=== PATIENT | female | born 1950 | race Caucasian/White ===

== ENCOUNTER → 2023-06-20 | Outpatient (CLI) | payer MEDICARE, OTHER, SELFPAY ==
[2023-06-20 15:06] LABS: Vitamin D,25 Hydroxy 45.7 ng/mL
[2023-06-20 15:45] LABS: PTHIN 46.3 pg/mL (18.4-80.1)
[2023-06-26 13:09] LABS: Vitamin D 1,25-Dihydroxy 49.4 pg/mL (24.8-81.5)
== END | disposition home or self-care (01) ==
LOC: POLAB3 14:16
PROVIDERS: Visit Provider Internal Medicine Nephrology
DX: E83.52 Hypercalcemia (principal)
CPT/HCPCS: 36415; 82306; 82652; 83970

== ENCOUNTER → 2023-06-25 | Outpatient (CLI) | payer MEDICARE, OTHER, SELFPAY ==
--- NOTE | 2023-06-25 12:13 | US_ITS ---
STUDY: RENAL ULTRASOUND - COMPLETE REASON FOR EXAM: Female, 72 years old. KIDNEY DISEASE STAGE 3A TECHNIQUE: Ultrasound evaluation of the kidneys was performed with real-time and static gloria-scale imaging. COMPARISON: None. FINDINGS: RIGHT KIDNEY: Normal location of the right kidney, which is normal in size. The right kidney measures 9.4 cm x 4.2 cm x 4 cm. There is diffuse thinning of the renal cortex. The renal cortex measures 0.8 cm. There is no right renal mass or cyst. There are no right renal calculi. There is no right hydronephrosis. DISTAL RIGHT URETER: There is non-visualization of the distal right ureter. There is no demonstrated right ureterovesical junction calculus. There is no demonstrated right ureteral jet. LEFT KIDNEY: Normal location of the left kidney, which is normal in size. The left kidney measures 10.2 cm x 4.4 cm x 4.9 cm. There is diffuse thinning of the renal cortex. The renal cortex measures 0.7 cm. There is no left renal mass or cyst. There are no left renal calculi. There is no left hydronephrosis. DISTAL LEFT URETER: There is non-visualization of the distal left ureter. There is no demonstrated left ureterovesical junction calculus. There is no demonstrated left ureteral jet. BLADDER: The distended urinary bladder has a volume of 178 ml. There is a normal wall thickness of the distended urinary bladder. There is no demonstrated mass within the urinary bladder. There are no demonstrated bladder calculi. US/Kidney and Bladder IMPRESSION: Mild degree of bilateral renal cortical thinning. Electronically Signed: Danish Madrid MD at 12:45 EST ,
== END | disposition home or self-care (01) ==
LOC: US 12:10
PROVIDERS: PCP Family Medicine; Referring Provider Internal Medicine Nephrology; Visit Provider Internal Medicine Nephrology
DX: N18.31 Chronic kidney disease, stage 3a (principal)
CPT/HCPCS: 76770

== ENCOUNTER 2023-08-31 13:11 | Outpatient (CLI) | payer MEDICARE, OTHER, SELFPAY ==
[2023-08-31 14:01] LABS: Albumin, Serum 3.5 g/dL (3.2-5.0); BUN 17 mg/dL (7-18); BUN/Creat Ratio 14.8 RATIO (10-20); Calcium,Total 9.6 mg/dL (8.5-10.1); Chloride 106 mmol/L (98-107); Creatinine, Serum 1.15 mg/dL (0.55-1.02); EST Glomerular Filtration Rate 49 mL/min (>60); Est Glom Filt Rate - Afr Amer 60 mL/min (>60); Glucose 105 mg/dL (74-106); Phosphorus 3.4 mg/dL (2.5-4.9); Potassium 3.6 mmol/L (3.5-5.1); Sodium Level 139 mmol/L (136-145)
== END 2023-08-31 23:59 | disposition home or self-care (01) ==
PROVIDERS: PCP Family Medicine; Referring Provider Internal Medicine Nephrology; Visit Provider Internal Medicine Nephrology
DX: N18.31 Chronic kidney disease, stage 3a (principal)
CPT/HCPCS: 36415; 80069

== ENCOUNTER 2024-04-28 13:18 | Inpatient (IN) | payer MEDICARE, OTHER, SELFPAY ==
[2024-04-28] VITALS (10 sets, daily range): BP systolic 133–173; BP diastolic 67–94; PULSE 60–94; RESP 15–20; TEMP 36.2–36.3; O2SAT 94–98; BMI 41.6; BMI 41.1
--- NOTE | 2024-04-28 13:36 | EKG12_ITS ---
Test Reason : Blood Pressure : */* mmHG Vent. 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
--- NOTE | 2024-04-28 13:36 | CT_ITS ---
STUDY: CT BRAIN WITHOUT CONTRAST REASON FOR EXAM: Female, 73 years old. Neuro deficit, acute, stroke suspected RADIATION DOSAGE (If Supplied By Facility): CTDIvol = ( 44.99 ) mGy, DLP = ( 796.11 ) mGycm TECHNIQUE: Transaxial CT imaging of the brain was performed without administration of intravenous contrast material. Individualized dose optimization techniques were used for this CT. COMPARISON: No relevant priors. FINDINGS: Normal soft tissue structures. Normal calvarium. There is mild cerebral atrophy with widening of the extra-axial spaces and ventricular dilatation. Normal white matter tracts of the cerebral hemispheres. Normal basal ganglia and thalami. Normal brainstem. Normal cerebellum. There is no intracranial hemorrhage. There are no findings of an acute ischemic infarction. Normal visualized paranasal sinuses. CT/Brain/Head without Contrast IMPRESSION: Chronic involutional changes of the brain. Electronically Signed: Danish Madrid MD at 14:06 EST ,
[2024-04-28] MEDS: Ondansetron 4 MG/2 ML Vial IV ×2 (13:51→17:46)
--- NOTE | 2024-04-28 13:55 | RAD_ITS ---
STUDY: X-RAY CHEST REASON FOR EXAM: Female, 73 years old. Neuro deficit, acute, stroke suspected -- Central gaze nystagmus, ataxia, TECHNIQUE: Single AP portable view of the chest. COMPARISON: None. FINDINGS: EKG electrodes are seen. Hyperinflation. The lungs are clear. There is no demonstrated pleural abnormality. Normal size heart. Normal mediastinum and roderick. Normal visualized pulmonary arteries. There is atherosclerotic tortuosity of the aortic arch and descending thoracic aorta. There are degenerative changes of the visualized thoracic spine. Normal visualized ribs, clavicles, and shoulders. There is no demonstrated abnormality of the visualized soft tissue structures of the upper abdomen. RAD/Chest 1 View IMPRESSION: Hyperinflation. The lungs are clear. Electronically Signed: Danish Madrid MD at 14:07 EST ,
[2024-04-28 13:58] LABS: Absolute Lymphocyte Count 4.01 X10^3/uL (0.83-4.51); Absolute Neutrophil Count 4.3 X10^3/uL (2.0-7.7); Basophil# 0.05 X10^3/uL; Basophil% 0.5 % (0-1); Eosinophil# 0.16 X10^3/uL; Eosinophils% 1.7 % (0-5); Hematocrit 41.4 % (37-47); Hemoglobin 13.9 g/dL (12.0-15.0); Lymphocyte # 4.01 X10^3/ul (0.83-4.51); Lymphocyte % 42.8 % (19-41); Mean Corp Hgb Conc 33.6 g/dL (32-36); Mean Corpuscular Hgb 30.6 pg (27.0-32.0); Mean Corpuscular Volume 91.2 fL (81-99); Mean Platelet Vol. 10.3 fl (6.2-12.0); Monocyte# 0.82 X10^3/uL; Monocyte% 8.8 % (0-10); NRBC Flagged by Analyzer 0 % (0-5); Platelet Count 275 K/mm3 (150-450); RBC Distribution Width SD 43.3 fl (35.1-43.9); Red Blood Count 4.54 M/mm3 (4.2-5.4); White Blood Count 9.4 K/mm3 (4.4-11.0)
--- NOTE | 2024-04-28 13:58 | ED.VIS.STROK ---
HPI History of Present Illness Chief Complaint: Dizziness Detail of Chief Complaint: Dizziness and problems with balance since April 18 Informant: patient Onset/Context/Timing Onset: Days Context: Sudden Onset Timing: Intermittent (Intermittent initially now continuous.) Quality and Location: Positive for Difficulty with Ambulation Onset: Approximately 9 days ago Worsened by: Nothing specific Relieved by: Nothing Associated Symptoms Associated Symptoms: Negative for Headache, Nausea, Vomiting or Chest Pain Narrative Narrative: Patient is a 73-year-old woman. She presents with dizziness which she describes bribes as something is not right and she is unsteady when she walks. It is gotten worse and has awakened her from sleep. She denies double vision, blurred vision or loss of vision. She denies trouble with speech or swallowing. She denies paresthesia, anesthesia or motor weakness upper lower extremity. Patient states she was hoping it would go away and reason she did not present to the emergency department earlier she denies headache. Prior similar symptoms: No Recent Illness/Hospitalization: No [facility] Medical History HTN (hypertension) Home Medications ?Medication ?Instructions ?Recorded ?Last Taken ?Type atenolol 100 mg tablet 100 mg PO DAILY 04/28/24 Unknown History atorvastatin 20 mg tablet 20 mg PO QHS 04/28/24 Unknown History biotin 1 mg tablet 1 mg PO DAILY 04/28/24 Unknown History cholecalciferol (vitamin D3) 25 25 mcg PO DAILY 04/28/24 Unknown History mcg (1,000 unit) capsule (Vitamin D3) levothyroxine 25 mcg capsule 25 mcg PO DAILY 04/28/24 Unknown History olmesartan 40 mg tablet 40 mg PO QHS 04/28/24 Unknown History omega-3 fatty acids 500 mg capsule 500 mg PO DAILY 04/28/24 Unknown History tolterodine 4 mg capsule,extended 4 mg PO DAILY 04/28/24 Unknown History release 24 hr triamterene 37.5 1 tab PO DAILY 04/28/24 Unknown History mg-hydrochlorothiazide 25 mg tablet Allergy/AdvReac Type Severity Reaction Status Date / Time adhesive Allergy Mild Swelling Verified 04/28/24 13:19 aspirin Allergy Mild Rash Verified 04/28/24 13:19 Social History (Updated 04/28/24 @ 14:[address] Ravi Arevalo MD) household members: none Smoking Status: Never smoker ROS ROS ED Constitutional Constitutional ED: Denies chills, fever(s) or subjective Eyes Eyes: Denies blurry vision, change in vision or diplopia ENT ENT ED: Denies ear pain, rhinorrhea or sore throat Cardiovascular Cardiovascular: Denies chest pain or palpitations Respiratory/Chest Respiratory/Chest: Denies cough, dyspnea or dyspnea on exertion Gastrointestinal Gastrointestinal: Reports nausea; Denies abdominal pain, diarrhea, melena or vomiting Genitourinary Genitourinary ED: Denies dysuria, hematuria or urinary frequency Musculoskeletal Musculoskeletal: Denies arthralgias, back pain, myalgias or neck pain Integumentary Denies rash Neurologic Neurologic: Reports other Details: Difficulty walking. ; Denies headache(s), paresthesias or weakness Psychiatric Psychiatric: Denies anxiety or depression Hematologic/Lymphatic Hematologic/Lymphatic: Denies easy bleeding or easy bruising EXAM Physical Exam Const Vital Signs: 04/28/24 13:19 04/28/24 13:29 04/28/24 13:31 Temperature 97.2 F L Temperature Source Temporal Pulse Rate 61 69 Respiratory Rate 15 16 Respiratory Effort Normal Non-Labored Respiratory Pattern Normal Blood Pressure 173/94 H 171/94 H Blood Pressure Mean 120 119 Pulse Ox 97 97 Oxygen Delivery Method Room Air Room Air 04/28/24 13:36 04/28/24 14:06 04/28/24 14:30 Temperature 97.2 F L Temperature Source Pulse Rate 69 60 63 Respiratory Rate 18 18 18 Respiratory Effort Respiratory Pattern Blood Pressure 171/94 H 165/81 H 165/81 H Blood Pressure Mean 119 109 109 Pulse Ox 98 94 94 Oxygen Delivery Method Room Air Room Air Positive well nourished and well developed Constitutional Narrative: BMI is greater than 40. There is no evidence of cerumen impaction. General Appearance ED: well developed HEENT Reports TM's clear and moist mucous membranes atraumatic Nose: other Other Details: Negative. Tympanic Membrane ED: Yes TM's clear bilateral Eyes PERRL and EOMs intact bilaterally Eyes Narrative: Patient has central gaze nystagmus. She has no visual field cut. General Eye ED: Negative for pale conjunctiva or scleral icterus Neck no lymphadenopathy and supple Chest Wall inspection of chest normal and palpation of chest normal Resp normal respiratory effort and clear to auscultation bilaterally Cardio no murmurs Rate: regular rate Rhythm: regular rhythm Heart Sounds: S1 normal and S2 normal GI normal to inspection, nondistended, normoactive bowel sounds, soft to palpation, non-tender, non-distended and no masses Back/Spine no CVA tenderness Extremity normal to inspection General Extremety ED: Negative for deformity or edema General Extremity: Negative for deformity or edema Neuro oriented x3, CN's II-XII intact bilaterally and no sensory deficits noted Neuro Narrative: Gait is ataxic. There is no dysmetria. Romberg with eyes open and close negative. The eye askew test and hints test were both negative. Nitin-Hallpike maneuver did not make her dizziness/vertigo worse. There is no worsening of her nystagmus either. Michael Coma Scale: document GCS findings Spontaneous Obeys Commands Oriented 15 Sensorium / Orientation: alert Speech: speech normal Gait (Neuro): Negative for normal gait Psych mental status grossly normal Skin no wounds General Skin Exam: Negative for jaundice Lesions: no lesions Rashes: no rashes NIHSS NIHSS Initial: 1a Level of Consciousness: 0 1b LOC Questions (Score 2 if aphasic/stupor): 0 1c LOC Commands (Only score 1st attempt): 0 2 Best Gaze (If aphasic, use reflexive mvmts.): 0 3 Visual: 0 4 Facial Palsy: 0 5 Motor Arm Right (UN = amputation/fusion): 0 5 Motor Arm Left: 0 6 Motor Leg Right: 0 6 Motor Leg Left: 0 7 Limb ataxia (Only + if out of proportion): 0 8 Sensory (Aphasia/stupor=0 or 1, coma=2): 0 9 Best Language: 0 10 Dysarthria (mute, coma=2, intubated=UN): 0 11 Extinction and Inattention (only scored if +): 0 Total Score: 0 MDM MDM MDM Narrative Medical decision making narrative: Patient's gait is ataxic. She is unable to do tandem gait. She falls to the right. With central gaze nystagmus symptoms persistent for 9 days 1 cannot attribute this to peripheral vertigo. Central vertigo need to be ruled out. Stroke order set was initiated with CT without contrast. CTA was not obtained since patient is elderly and she is not a candidate for thrombectomy and will await renal function results. Furthermore MRI would be a better study. Lab Data Attestation: I reviewed the patient's lab results. Lab results narrative: CBC is unremarkable. There is slight lymphocytosis. Electrolyte panel is normal. Glucose was slightly elevated 122 with a normal CO2 anion gap. Troponin is slightly elevated 89. Labs: Laboratory Results - last 24 hr 04/28/24 13:45 WBC 9.4 RBC 4.54 Hgb 13.9 Hct 41.4 MCV 91.2 MCH 30.6 MCHC 33.6 RDW Std Deviation 43.3 RDW Coeff of Brandon 13.0 Plt Count 275 MPV 10.3 Immature Gran % (Auto) 0.200 Neut % (Auto) 46.0 L Lymph % (Auto) 42.8 H [place] % (Auto) 8.8 Eos % (Auto) 1.7 Baso % (Auto) 0.5 Absolute Neuts (auto) 4.3 Absolute Lymphs (auto) 4.01 Nucleated RBC % 0 PT 12.8 INR 1.0 APTT 36.0 Sodium 137 Potassium 3.3 L Chloride 104 Carbon Dioxide 26.0 Anion Gap 7 BUN 16 Creatinine 0.94 Estim Creat Clear Calc 62.33 Est GFR (MDRD) Af Amer 75 Est GFR (MDRD) Non-Af 62 BUN/Creatinine Ratio 17.0 Glucose 122 H Calcium 10.0 Troponin I High Sens 89 H Radiography Chest X-Ray - ED: 1 View, Read by ED Physician (There is no abnormality of the lung parenchyma. Patient does have slight hyperaeration. There is no evidence of effusion or pneumothorax either.), Heart, Mediastinum, Bony Structures and No Acute Disease Diagnostic Testing: Clinical Impression(s) from Imaging Studies Brain CT 04/28/24 13:36 IMPRESSION: Chronic involutional changes of the brain. Electronically Signed: Danish Madrid MD at 14:06 EST , Chest X-Ray 04/28/24 13:55 IMPRESSION: Hyperinflation. The lungs are clear. Electronically Signed: Danish Madrid MD at 14:07 EST , CT report was reviewed. Agree there is no evidence of any acute abnormality. EKG Initial EKG: Attestation: I personally reviewed and interpreted this EKG as follows: Interpretation: Sinus Rhythm (Rate is 65 with a first-degree AV block. There is evidence of LVH with repolarization abnormality. [place] interval is 222 ms. Cures duration 94 ms. QT duration 448 ms. [place] is normal.) Management Discussion w/another healthcare provider: Hospitalist (Hospitalist made aware of history, physical findings and results. Patient will be full admit to PCU) Discharge Plan Dx/Rx/DC Orders Clinical Impression: Ataxia, Central positional nystagmus of both eyes, Nausea & vomiting, Elevated blood pressure reading with diagnosis of hypertension, Elevated troponin Disposition Disposition: Acute Care [facility]
[2024-04-28 14:06] LABS: Prothrombin Time (Protime)PT. 12.8 SECONDS (11.7-14.9)
[2024-04-28 14:18] LABS: Anion Gap 7 (5-15); BUN 16 mg/dL (7-18); Chloride 104 mmol/L (98-107); Creatinine, Serum 0.94 mg/dL (0.55-1.02); EST Glomerular Filtration Rate 62 mL/min (>60); Est Glom Filt Rate - Afr Amer 75 mL/min (>60); Estimated Creatinine Clearance 62.33 ml/min; Glucose 122 mg/dL (74-106); Potassium 3.3 mmol/L (3.5-5.1); Sodium Level 137 mmol/L (136-145); Troponin-I HS 89 pg/mL (3.0-54.0)
--- NOTE | 2024-04-28 15:19 | PCM.HP.STD ---
HPI - General General Date of Admission: 04/28/24 Date of Service: 04/28/24 Chief Complaint: Dizziness, unsteadiness HPI Narrative HORACIO RAMSEY, is a 73-year-old male history of hypertension and hypothyroidism presented [facility] ED 04/28/2024 with dizziness with the room spinning and unsteadiness when she walks that has gotten worse since the sixth and awakens her from sleep. She kept hoping it would go away however did not so she presented to the emergency department. In the ED CT head with no acute process however she had ataxic gait and symptoms consistent with central vertigo concerning for CVA. Given the symptoms have been present since April 18 CTA was not obtained as she would not be the candidate for any intervention. In the ED potassium 3.3 and troponin found to be elevated to 89 unclear significance. Hospitalist contacted for CVA rule out. Patient evaluated in the ED and reports that for about 9 days she has been having nights where she wakes up with the room spinning around her and she feels very unwell and during the day she has been feeling unsteady having difficulty focusing and stumbling, today symptoms were worse prompting her to come to the ED, also feeling little bit nauseous today. Has had brief episodes of vertigo like symptoms before but nothing prolonged and nothing like this. Denies any history cardiac complaints, also denies any chest pain or shortness of breath, no numbness, weakness, tingling, any other focal deficits. Does have problems with ringing in her ears for months but this has been unchanged and she denies any changes in her hearing. Patient does note that all of these symptoms that she has been having come and go and are not persistent throughout the day [facility] Medical History (Updated 04/28/24 @ 14:37 by Blanca Vernon) CPAP (continuous positive airway pressure) dependence HTN (hypertension) Hypothyroidism Kidney disease Non-smoker Osteoarthritis Sleep apnea Home Medications ?Medication ?Instructions ?Recorded ?Last Taken ?Type atenolol 100 mg tablet 100 mg PO DAILY 04/28/24 Unknown History atorvastatin 20 mg tablet 20 mg PO QHS 04/28/24 Unknown History biotin 1 mg tablet 1 mg PO DAILY 04/28/24 Unknown History cholecalciferol (vitamin D3) 25 25 mcg PO DAILY 04/28/24 Unknown History mcg (1,000 unit) capsule (Vitamin D3) levothyroxine 25 mcg capsule 25 mcg PO DAILY 04/28/24 Unknown History olmesartan 40 mg tablet 40 mg PO QHS 04/28/24 Unknown History omega-3 fatty acids 500 mg capsule 500 mg PO DAILY 04/28/24 Unknown History tolterodine 4 mg capsule,extended 4 mg PO DAILY 04/28/24 Unknown History release 24 hr triamterene 37.5 1 tab PO DAILY 04/28/24 Unknown History mg-hydrochlorothiazide 25 mg tablet Allergy/AdvReac Type Severity Reaction Status Date / Time adhesive Allergy Mild Swelling Verified 04/28/24 13:19 aspirin Allergy Mild Rash Verified 04/28/24 13:19 Surgical History (Updated 04/28/24 @ 14:37 by Blanca Vernon) History of appendectomy History of cholecystectomy Social History (Updated 04/28/24 @ 14:[address] Ravi Arevalo MD) household members: none Smoking Status: Never smoker ROS ROS Narrative General: Denies fever/chills HENT: Denies headache, denies stuffy nose, denies sore throat, some chronic ringing in ears EYES: Denies changes in vision Resp: Denies cough, denies shortness of breath Cardiac: Denies chest pain GI: Denies abdominal pain, denies changes in bowel, has a little bit of nausea : Denies changes in urination Extremity: Denies swelling MSK: Denies weakness Neuro: Denies any numbness/tingling, intermittently feeling unsteady and having difficulty focusing Heme: Denies any bleeding or bruising Skin: Denies rashes Psychiatric: No complaints voiced Vital Signs Vital Signs Vital Signs: 04/28/24 13:19 04/28/24 13:29 04/28/24 13:31 Temperature 97.2 F L Temperature Source Temporal Pulse Rate 61 69 Respiratory Rate 15 16 Respiratory Effort Normal Non-Labored Respiratory Pattern Normal Blood Pressure 173/94 H 171/94 H Blood Pressure Mean 120 119 Pulse Ox 97 97 Oxygen Delivery Method Room Air Room Air 04/28/24 13:36 04/28/24 14:06 04/28/24 14:30 Temperature 97.2 F L Temperature Source Pulse Rate 69 60 63 Respiratory Rate 18 18 18 Respiratory Effort Respiratory Pattern Blood Pressure 171/94 H 165/81 H 165/81 H Blood Pressure Mean 119 109 109 Pulse Ox 98 94 94 Oxygen Delivery Method Room Air Room Air 04/28/24 14:30 04/28/24 15:00 Temperature Temperature Source Pulse Rate 62 94 Respiratory Rate 16 18 Respiratory Effort Respiratory Pattern Blood Pressure 151/70 H 140/67 H Blood Pressure Mean 97 91 Pulse Ox 94 94 Oxygen Delivery Method Room Air Room Air Weight Weight: 106.594 kg Body Mass Index (BMI) 41.6 Physical Exam Narrative General: Alert, oriented, no apparent distress HEENT: Atraumatic, normocephalic Eyes: Anicteric, normal conjunctiva, extraocular movements intact, pupils equal, does have some multidirectional mild nystagmus Neck: Supple Respiratory: Clear to auscultation bilaterally, normal respiratory effort Cardiovascular: Regular rate and rhythm GI: Soft, nontender, nondistended Extremities: No edema Musculoskeletal: Strength 5 out of 5 in right upper extremity, 5 out of 5 left upper extremity, 5 out of 5 right lower extremity, 5 out of 5 left lower extremity Neuro: No overt focal neurological deficits, cranial nerves II through XII intact, [id number] without significant difficulty bilaterally Skin: No rashes appreciated Psych: Cooperative Results Lab / Micro Data 04/28/24 13:45 04/28/24 13:45 Labs: Laboratory Results - last 24 hr 04/28/24 13:45: WBC 9.4, RBC 4.54, Hgb 13.9, Hct 41.4, MCV 91.2, MCH 30.6, MCHC 33.6, RDW Std Deviation 43.3, RDW Coeff of [place] 13.0, Plt Count 275, MPV 10.3, Immature Gran % (Auto) 0.200, Neut % (Auto) 46.0 L, Lymph % (Auto) 42.8 H, [place] % (Auto) 8.8, Eos % (Auto) 1.7, Baso % (Auto) 0.5, Absolute Neuts (auto) 4.3, Absolute Lymphs (auto) 4.01, Nucleated RBC % 0, PT 12.8, INR 1.0, APTT 36.0, Sodium 137, Potassium 3.3 L, Chloride 104, Carbon Dioxide 26.0, Anion Gap 7, BUN 16, Creatinine 0.94, Estim Creat Clear Calc 62.33, Est GFR (MDRD) Af Amer 75, Est GFR (MDRD) Non-Af 62, BUN/Creatinine Ratio 17.0, Glucose 122 H, Calcium 10.0, Troponin I High Sens 89 H Imaging Radiology Impression Brain CT 04/28/24 13:36 IMPRESSION: Chronic involutional changes of the brain. Electronically Signed: Danish Madrid MD at 14:06 EST , Chest X-Ray 04/28/24 13:55 IMPRESSION: Hyperinflation. The lungs are clear. Electronically Signed: Danish Madrid MD at 14:07 EST , Assessment & Plan Assessment/Plan (1) Ataxia: PLAN: Plan # Vertigo and ataxia concerning for underlying CVA -Admit to tele -CT head with no acute pathology -CTA head and neck ordered -MRI ordered with Ativan given her significant difficulty tolerating MRIs before -NIH q4hr -asa not given due to rash so Plavix ordered, statin ordered -Echo w/ bubble study -PT/OT/Speech eval -Teleneuro consult placed # Elevated troponin -Initial troponin 89, unclear significance, no cardiac symptoms -EKG with first-degree block and some T wave inversions, trend troponins -Echocardiogram -Pending troponin trend may need to consider cardiology involvement #Hypothyroidism -Continue Synthroid #Hypertension -Continue present management given symptoms have been intermittent but present for greater than 24 hours #Hypokalemia -Replace -Repeat in the AM #DVT ppx: Lovenox subcu Claudia Ma MD Charges/Coding Visit Charges Inpatient E&M: 30170 Init Hosp L2
--- NOTE | 2024-04-28 15:35 | CT_ITS ---
INDICATION: Neuro deficit, acute, stroke suspected EXAMINATION: CTA HEAD - CTA Head and Neck W/ Contrast Injection (and W/O Contrast Images if performed) TECHNIQUE: [place] [facility] [place]/head CT angiogram protocol was performed following IV contrast. 3D reconstructions were reviewed. A radiation dose optimization technique was used for this scan. IV Contrast dosage and agent: 100 mL [id number] Radiation Dose (provided by facility) CTDIvol (16.89 ) mGy, DLP ( 854.79) mGy-cm COMPARISON: CT examination of the head on the same date FINDINGS: CTA [place] [facility] [place]: PETROUS AND CAVERNOUS CAROTID ARTERIES: Normal appearance of the petrous and cavernous carotid vessels bilaterally. No focal stenosis noted. There are minimal carotid calcifications. SUPRACLINOID CAROTID ARTERIES: Normal appearance the supraclinoid carotid vessels bilaterally, the visualized ophthalmic arteries have normal appearance. ANTERIOR CEREBRAL AND A- COMM: Normal appearance the proximal and distal segments of the anterior cerebral circulation bilaterally. MIDDLE CEREBRAL ARTERIES: Normal appearance the proximal and distal segments of the middle cerebral circulation bilaterally. Normal appearance of the M4 cortical distribution bilaterally. INTRACRANIAL VERTEBRAL ARTERIES AND BASILAR ARTERY: Normal appearance of the intracranial course of the vertebral arteries bilaterally, normal appearance of basilar artery to the level of the bifurcation. POSTERIOR CEREBRAL ARTERIES: Normal appearance proximal distal segments of posterior cerebral circulation bilaterally. DURAL SINUSES: Normal, no filling defects noted CT HEAD: The cerebral parenchyma, ventricular system and gyral pattern have normal configuration. No areas of abnormal contrast enhancement. No evidence of hemorrhage given the limitation of postcontrast imaging. CTA Neck: TECHNIQUE: CTA examination of the neck obtained with standard protocol including axial postcontrast imaging with additional planar and three-dimensional reconstructions. Aortic arch: [Normal appearance of the aortic arch and origin the great vessels.] Incidental note of bovine origin of the carotid vessels. Minimal calcifications present. Right carotid system: There is normal appearance RIGHT common carotid, RIGHT internal carotid arteries, and the bifurcation. Normal appearance of the external carotid circulation on the RIGHT. Left carotid system: There is normal appearance of the LEFT common carotid, LEFT internal carotid, and the bifurcation. There is normal appearance of the LEFT external carotid circulation minimal LEFT carotid bulb calcifications without luminal irregularity or stenosis. Vertebral arteries: There is normal appearance of the vertebral arteries bilaterally without focal stenosis or occlusion. Airway and soft tissues of the neck: There is normal appearance of the musculofascial planes of suprahyoid and infrahyoid neck. Normal appearance of the visualized airway. Normal appearance the visualized thyroid without masses or nodules noted. Cervical spine: Normal appearance of bony elements of the cervical spine. No focal stenosis or occlusion involving the cervical spinal canal. CT/CTA Head AND Neck W/ Contrast IMPRESSION: 1. Minimal calcifications in the cavernous carotid vessels without stenosis or luminal irregularity. 2. No intracranial stenosis occlusion or aneurysm. No evidence of LVO. Next line minimal calcification LEFT carotid bulb, remaining cervical carotid and vertebral circulation has normal appearance. No hemodynamically significant stenosis. Electronically Signed: Irving Greenfield MD at 23:08 EST ,
--- NOTE | 2024-04-28 15:35 | MRI_ITS ---
STUDY: MRI BRAIN WITHOUT CONTRAST REASON FOR EXAM: Female, 73 years old. Ataxia, vertigo, concern for TIA cva TECHNIQUE: Standardized multiplanar fat and water weighted pulse sequences were obtained. MRI examination brain fusion protocol including multiplanar multiecho noncontrast imaging. Contrast: No contrast administered COMPARISON: CT of 04/28/2024 HEMISPHERES, CEREBELLUM AND BRAINSTEM: 1. The cerebral parenchyma, ventricular system, subarachnoid spaces have normal configuration and density. There is a normal gyral pattern. There is normal salvador/white differentiation. No midline shift.. 2. Minimal involutional changes and scattered minimal chronic microvascular deep white matter change. No evidence fluid restriction or acute ischemic change. No hemosiderin deposition or hemorrhage. 3. No intraparenchymal mass, hemorrhage, or acute territorial infarct. 4. The cerebellum, brainstem, basilar and suprasellar cisterns have normal appearance. No Chiari malformation. Normal appearance of visualized obtained in a complexes, CP angle and IACs. PITUITARY: Infundibulum and pituitary have normal configuration. Midline structures appear normal. CSF SPACES: Appropriate for age. No hydrocephalus. Basal cisterns are patent. VESSELS: 1. There are normal flow voids noted in the great vessels at the skull base ORBITS AND PARANASAL SINUSES: 1. Both globes, extraocular muscles, optic nerves and retrobulbar fat appear unremarkable. 2. Paranasal sinuses are clear. There is incidental note of pneumatization of the LEFT pterygoid process. BONY ELEMENTS: Bony elements of the cranial vault, facial skeleton and skull base have normal appearance. SCALP AND SOFT TISSUES: Normal appearance of the soft tissues of the scalp and the visualized face OTHER: None MRI/Brain without Contrast IMPRESSION: 1. No intracranial mass, hemorrhage, or acute territorial infarct. 2. No radiographically significant sinus disease. 3. No evidence of fluid or soft tissue accumulation middle ear cavities or mastoid air cells. Electronically Signed: Irving Greenfield MD at 20:37 EST ,
--- NOTE | 2024-04-28 15:35 | ECHOCS_ITS ---
Reason For Study: TIA/CVA Procedure This was a 2D Doppler, Color Flow transthoracic echocardiogram. The study was technically difficult. Contrast injection was performed. Patient scanned supine due to extreme dizziness. Exam performed portable in patient room. Left Ventricle Normal LV size. Left ventricular systolic function is normal. The left ventricular ejection fraction is 70 %. No regional wall motion abnormalities noted. Right Ventricle Normal RV size. Normal systolic function. Atria Normal left atrium. Normal right atrium. Bubble contrast study is negative for PFO/ASD. Mitral Valve Normal mitral valve. Tricuspid Valve Normal tricuspid valve. Mild (1+) tricuspid valve insufficiency. Pulmonary artery systolic pressure is 30 mmHg. Aortic Valve Trisinus/trileaflet aortic valve. Pulmonic Valve Normal pulmonic valve. Great Vessels Normal aortic root. The pulmonary artery is normal size. Normal inferior vena cava. Pericardium/Pleural No pericardial effusion. Medication Diluted definity 2ml given slow IV push to enhance endocardial definition. Performed a rapid injection of agitated mix of 9 cc saline and 1cc air to assess for atrial septal defect. MMode/2D Measurements & Calculations LVIDd: 4.4 cm IVSd: 1.1 cm Ao root diam: 3.6 cm LVIDs: 2.7 cm LVPWd: 1.0 cm FS: 38.6 % LAV(MOD-bp): 63.3 ml LVAd ap4: 26.9 cm2 SV(MOD-sp4): 59.9 ml LAV(MOD-bp) Indexed: 30.6 ml/m2 LVLd ap4: 7.1 cm SI(MOD-sp4): 29.0 ml/m2 LAV(MOD-sp2): 59.4 ml EDV(MOD-sp4): 84.2 ml LAV(MOD-sp4): 61.2 ml EDV(sp4-el): 86.5 ml LVAs ap4: 12.4 cm2 LVLs ap4: 5.2 cm ESV(MOD-sp4): 24.3 ml ESV(sp4-el): 24.9 ml EF(MOD-sp4): 71.2 % EF(sp4-el): 71.2 % SV(sp4-el): 61.5 ml LA A4 area: 19.2 cm2 LA dimension(2D): 3.6 cm RA A4 area: 15.0 cm2 TAPSE: 2.5 cm Time Measurements MV dec time: 0.29 sec Doppler Measurements & Calculations MV E max john: 85.9 cm/sec Lat Peak E' John: 5.9 cm/sec Med Peak E' John: 5.5 cm/sec MV A max john: 97.0 cm/sec E/E' lat: 14.6 E/E' med: 15.6 MV E/A: 0.89 MV V2 max: 110.2 cm/sec MV P1/2t max john: 89.3 cm/sec Ao V2 max: 148.8 cm/sec MV max P.9 mmHg MV P1/2t: 86.3 msec Ao max P.9 mmHg MV V2 mean: 66.3 cm/sec MV dec slope: 302.8 cm/sec2 MV mean P.0 mmHg MVA(P1/2t): 2.5 cm2 MV V2 VTI: 32.7 cm LV V1 max: 146.5 cm/sec PA V2 max: 84.0 cm/sec TR max john: 257.2 cm/sec LV V1 max P.6 mmHg TR max P.5 mmHg ECHO/Echo Complete W/ Contrast Interpretation Summary Normal LV size. Left ventricular systolic function is normal. The left ventricular ejection fraction is 70 %. Bubble contrast study is negative for PFO/ASD. Contrast injection was performed. Ordering Physician: Claudia Ma Performed By: Germán Cook RCS
--- NOTE | 2024-04-28 15:48 | ED.RN ---
sent 2nd troponin
[2024-04-28 16:46] LABS: Troponin-I HS 85 pg/mL (3.0-54.0)
[2024-04-28] MEDS: 0.9% Saline Lock 10 ML Syringe IV (17:46)
[2024-04-28] MEDS: LORazepam 0.5 MG Tablet PO (17:46)
[2024-04-28] MEDS: Potassium Chloride Oral Tablet 20 MEQ 40 MEQ PO (18:59)
[2024-04-28 20:11] LABS: Troponin-I HS 89 pg/mL (3.0-54.0)
[2024-04-28] MEDS: Losartan Potassium 100 MG Tablet PO (20:35)
[2024-04-28] MEDS: Atorvastatin Calcium 80 MG Tablet PO (20:35)
[2024-04-29] VITALS (7 sets, daily range): BP systolic 105–138; BP diastolic 64–82; PULSE 65–73; RESP 16–18; TEMP 36.3–36.4; O2SAT 95–98; BMI 41.1
[2024-04-29] MEDS: Levothyroxine 25 MCG TABLET PO (04:59)
[2024-04-29] MEDS: 0.9% Saline Lock 10 ML Syringe IV (05:03)
[2024-04-29] MEDS: Ondansetron 4 MG/2 ML Vial IV (05:03)
[2024-04-29 06:20] LABS: Absolute Lymphocyte Count 2.18 X10^3/uL (0.83-4.51); Absolute Neutrophil Count 5.2 X10^3/uL (2.0-7.7); Basophil# 0.04 X10^3/uL; Basophil% 0.5 % (0-1); Eosinophils% 1.2 % (0-5); Hematocrit 39.8 % (37-47); Hemoglobin 13.4 g/dL (12.0-15.0); Lymphocyte # 2.18 X10^3/ul (0.83-4.51); Mean Corp Hgb Conc 33.7 g/dL (32-36); Mean Corpuscular Hgb 30.6 pg (27.0-32.0); Mean Corpuscular Volume 90.9 fL (81-99); Mean Platelet Vol. 10.1 fl (6.2-12.0); Monocyte# 0.85 X10^3/uL; Monocyte% 10.1 % (0-10); NRBC Flagged by Analyzer 0 % (0-5); Neutrophil % 61.8 % (47-70); Platelet Count 227 K/mm3 (150-450); RBC Distribution Width CV 13.1 % (11.6-14.6); RBC Distribution Width SD 43.3 fl (35.1-43.9); Red Blood Count 4.38 M/mm3 (4.2-5.4); White Blood Count 8.4 K/mm3 (4.4-11.0)
[2024-04-29 06:54] LABS: Anion Gap 6 (5-15); BUN 15 mg/dL (7-18); BUN/Creat Ratio 15.9 RATIO (10-20); Calcium,Total 9.6 mg/dL (8.5-10.1); Chloride 105 mmol/L (98-107); Cholesterol 156 mg/dL (200); Creatinine, Serum 0.94 mg/dL (0.55-1.02); EST Glomerular Filtration Rate 62 mL/min (>60); Est Glom Filt Rate - Afr Amer 75 mL/min (>60); Estimated Creatinine Clearance 61.93 ml/min; Glucose 123 mg/dL (74-106); High Density Lipoprotein 40 mg/dL; Potassium 3.8 mmol/L (3.5-5.1); Sodium Level 137 mmol/L (136-145); Triglycerides 172 mg/dL; Very Low Density Lipoprotein 34 mg/dL (5-40)
--- NOTE | 2024-04-29 08:19 | NEURO.CONS ---
Assessment and Plan: Neuro Assessment/Plan HORACIO RAMSEY is a 73 F with a past medical history of HTN and hypothyroidism, being evaluated by Teleneurology for persistent dizziness. Symptoms suggestive of a episodic dizziness, consistent with BPPV and her symptoms have improved after an Silverio maneuver. Imaging is benign. Unclear why there is pain associated with it but she had some viral prodrome so there may be a viral component to it as well. Given the time that has passed and patient's symptoms have improved greatly, will defer on other therapies. Recommend outpatient vestibular therapy if symptoms persist I personally attended this patient and spent a total time of 45 minutes evaluating this patient including clinical assessment, review of chart, medical history imaging, and determining appropriate treatment and workup. HPI Consult Data Date of Consult: 04/29/24 HPI Narrative HPI Narrative: HORACIO RAMSEY, is a 73-year-old male history of hypertension and hypothyroidism presented [facility] ED 04/28/2024 with dizziness with the room spinning and unsteadiness when she walks that has gotten worse since the and awakens her from sleep. She kept hoping it would go away however did not so she presented to the emergency department. In the ED CT head with no acute process however she had ataxic gait and symptoms consistent with central vertigo concerning for CVA. Patient evaluated in the ED and reports that for about 9 days she has been having nights where she wakes up with the room spinning around her and she feels very unwell and during the day she has been feeling unsteady having difficulty focusing and stumbling, today symptoms were worse prompting her to come to the ED, also feeling little bit nauseous today. Has had brief episodes of vertigo like symptoms before but nothing prolonged and nothing like this. Does have problems with ringing in her ears for months but this has been unchanged and she denies any changes in her hearing. Patient does note that all of these symptoms that she has been having come and go and are not persistent throughout the day Neurologic History Has had dizziness for 10 days now, first noticed it on Dec 6 had a shooting pain at back of neck and across his ear. Only lasted a couple seconds, then woke up with room spinning. Had 3 days of intermittent shooting pains and dizzy spells. Feels much bettter now. PT was just in and do maneuvers on her and she feels a lot better. Still having ringing in her ear. No changes in salt intake or diet in the last month. No falls at home. The dizziness at home wouild come when she made a sudden move or bend over. The dizziness is episodic and intermittent. Did have a cold recently, only got better after Thanksgiving. [facility] Medical History (Updated 04/28/24 @ 14:37 by Blanca Vernon) Osteoarthritis Hypothyroidism Kidney disease Non-smoker CPAP (continuous positive airway pressure) dependence Sleep apnea HTN (hypertension) Home Medications ?Medication ?Instructions ?Recorded ?Last Taken ?Type atenolol 100 mg tablet 100 mg PO DAILY blood pressure 04/28/24 Unknown History atorvastatin 20 mg tablet 20 mg PO QHS cholesterol 04/28/24 Unknown History biotin 1 mg tablet 1 mg PO DAILY supplement 04/28/24 Unknown History cholecalciferol (vitamin D3) 25 25 mcg PO DAILY vitamin 04/28/24 Unknown History mcg (1,000 unit) capsule (Vitamin D3) levothyroxine 25 mcg capsule 25 mcg PO DAILY thyroid 04/28/24 Unknown History olmesartan 40 mg tablet 40 mg PO QHS blood pressure 04/28/24 Unknown History omega-3 fatty acids 500 mg capsule 500 mg PO DAILY supplement 04/28/24 Unknown History polyethylene glycol 3350 17 8.5 g PO DAILY stool softener 04/28/24 04/28/24 History gram/dose oral powder (Miralax) tolterodine 4 mg capsule,extended 4 mg PO DAILY bladder 04/28/24 Unknown History release 24 hr triamterene 37.5 1 tab PO DAILY blood pressure 04/28/24 Unknown History mg-hydrochlorothiazide 25 mg tablet meclizine 25 mg tablet 25 mg PO TID PRN dizziness #20 tabs 04/29/24 Unknown Rx Allergy/AdvReac Type Severity Reaction Status Date / Time adhesive Allergy Mild Swelling Verified 04/28/24 13:19 aspirin Allergy Mild Rash Verified 04/28/24 13:19 Surgical History (Updated 04/28/24 @ 14:37 by Blanca Vernon) History of appendectomy History of cholecystectomy Social History (Updated 04/28/24 @ 14:[address] Ravi Arevalo MD) household members: none Smoking Status: Never smoker Vital Signs Vital Signs Vital Signs: 04/28/24 13:19 04/28/24 13:29 04/28/24 13:31 Temperature 97.2 F L Temperature Source Temporal Pulse Rate 61 69 Pulse Strength Respiratory Rate 15 16 Respiratory Effort Normal Non-Labored Respiratory Depth Respiratory Pattern Normal Blood Pressure 173/94 H 171/94 H Blood Pressure Mean 120 119 Blood Pressure Source Blood Pressure Position Blood Pressure Location Pulse Ox 97 97 Oxygen Delivery Method Room Air Room Air 04/28/24 13:36 04/28/24 14:06 04/28/24 14:30 Temperature 97.2 F L Temperature Source Pulse Rate 69 60 63 Pulse Strength Respiratory Rate 18 18 18 Respiratory Effort Respiratory Depth Respiratory Pattern Blood Pressure 171/94 H 165/81 H 165/81 H Blood Pressure Mean 119 109 109 Blood Pressure Source Blood Pressure Position Blood Pressure Location Pulse Ox 98 94 94 Oxygen Delivery Method Room Air Room Air 04/28/24 14:30 04/28/24 15:00 04/28/24 15:30 Temperature Temperature Source Pulse Rate 62 94 67 Pulse Strength Respiratory Rate 16 18 20 H Respiratory Effort Respiratory Depth Respiratory Pattern Blood Pressure 151/70 H 140/67 H 153/71 H Blood Pressure Mean 97 91 98 Blood Pressure Source Blood Pressure Position Blood Pressure Location Pulse Ox 94 94 94 Oxygen Delivery Method Room Air Room Air Room Air 04/28/24 16:35 04/28/24 16:41 04/28/24 20:00 Temperature 97.4 F L Temperature Source Temporal Pulse Rate 60 Pulse Strength Respiratory Rate 18 Respiratory Effort Normal Non-Labored Respiratory Depth Normal Respiratory Pattern Normal Blood Pressure 133/73 H Blood Pressure Mean 93 Blood Pressure Source Monitor Blood Pressure Position Semi-Fowlers Blood Pressure Location Left Arm Pulse Ox 97 98 Oxygen Delivery Method Room Air Room Air Room Air 04/28/24 20:30 04/28/24 20:35 04/29/24 00:20 Temperature 97.4 F L Temperature Source Temporal Pulse Rate 64 Pulse Strength Respiratory Rate 16 Respiratory Effort Normal Non-Labored Normal Non-Labored Respiratory Depth Normal Normal Respiratory Pattern Normal Normal Blood Pressure 136/71 H Blood Pressure Mean 92 Blood Pressure Source Monitor Blood Pressure Position Semi-Fowlers Blood Pressure Location Left Arm Pulse Ox 98 Oxygen Delivery Method Room Air Room Air CPAP 04/29/24 00:30 04/29/24 04:30 04/29/24 08:17 Temperature 97.6 F L 97.6 F L 97.6 F L Temperature Source Temporal Temporal Temporal Pulse Rate 65 73 66 Pulse Strength Respiratory Rate 16 16 18 Respiratory Effort Respiratory Depth Respiratory Pattern Blood Pressure 134/72 H 138/82 H 120/77 Blood Pressure Mean 92 100 91 Blood Pressure Source Monitor Monitor Monitor Blood Pressure Position Semi-Fowlers Semi-Fowlers Semi-Fowlers Blood Pressure Location Left Arm Left Arm Left Arm Pulse Ox 98 95 96 Oxygen Delivery Method CPAP CPAP Room Air 04/29/24 08:18 Temperature Temperature Source Pulse Rate Pulse Strength Normal (2+) Respiratory Rate Respiratory Effort Respiratory Depth Respiratory Pattern Blood Pressure Blood Pressure Mean Blood Pressure Source Blood Pressure Position Blood Pressure Location Pulse Ox Oxygen Delivery Method Weight Weight: 105.4 kg Body Mass Index (BMI) 41.1 EEG Results Procedure Details EEG Procedure Details: HORACIO RAMSEY is a 73 year old F with a past medical history of , who presents for evaluation of Electroencephalogram on DATE at TIME NIHSS NIHSS Nursing Documentation NIHSS Nursing Documentation: NIHSS: Ischemic Stroke/TIA Start: 04/28/24 16:04 Text: For PCU Patients: NIH and Neuro Check every 4 Status: Active hours, PRN and with change in RN caregiver. Freq: [id number] Protocol: Activity Type Activity Date Activity User E-sign Co-sign Detail Recorded Client Recorded Date Recorded By Document 04/29/24 04:30 MNT [id number] 04/29/24 04:59 MNT 04/29/24 04:30 NIH Stroke Scale [NIHSS] A score of 0 is normal or asymptomatic . Total possible score is 42. Inpatient: RN or Physician to activate a stroke alert for onset of new stroke symptoms or with NIHSS increase >/= 3 points. Following change in neurological status, NIHSS will be performed per physician order or more frequently PRN. -1a. Level of Consciousness Alert; keenly responsive -1b. LOC Questions Answers BOTH questions correctly. -1c. LOC Commands Performs both tasks correctly . -2. Best Gaze Normal -3. Visual No visual loss -4. Facial Palsy Normal symmetrical movements -5a. Left Arm No drift; arm holds 90 (or 45 ) degrees for full 10 seconds -5b. Right Arm No drift; arm holds 90 (or 45 ) degrees for full 10 seconds -6a. Left Leg No drift; leg holds 30-degree position for full 5 seconds -6b. Right Leg No drift; leg holds 30-degree position for full 5 seconds -7. Limb Ataxia Absent -8. Sensory Normal; no sensory loss -9. Best Language No aphasia; normal -10. Dysarthria Normal -11. Extinction and Inattention No abnormality -Total 0 Query Text:A score of 0 is normal or asymptomatic. Total possible score is 42 . ED: Notify Physician for NIHSS increase by > / = 3 points. Inpatient: RN or Physician to activate a stroke alert for NIHSS increase of > / = 3 points. Coma Scale [Assess] -Eye Opening Spontaneous -Motor Obeys Commands -Verbal Oriented [Total] -Coma Scale Total 15 Physical Exam Narrative -? General: Laying comfortably in bed; in no acute distress. -? HENT: Normal oropharynx and mucosa. Normal external appearance of ears and nose. Exophthalmos. -? Neck: Supple, no pain or tenderness -? CV:? No peripheral edema. -? Pulmonary:? Normal respiratory effort. -? Ext: No cyanosis, edema, or deformity -? Skin: No rash. Normal palpation of skin.? -? Musculoskeletal: full range of motion; no joint tenderness. Normal digits and nails by inspection. No clubbing. -? NEURO: -? Mental Status: The patient was alert and oriented to time, place, and person. Normal recent/remote memory, concentration, and general fund of knowledge. -? Language: speech is clear.? Naming, repetition, fluency, and comprehension intact. -? Cranial Nerves: PERRL 3 mm/brisk. EOMI, visual ramirez full, no facial asymmetry, facial sensation intact, hearing intact, tongue midline, no evidence of atrophy or fibrillations. - nystagmus without resolution on L gaze with rotary nystagmus when looking to the L upper corner -? Motor: normal bulk, tone, and strength throughout. No pronator drift or satelliting. UE without drift, LE with drift b/l -? Detailed strength exam as performed by the nurse/SYED and witnessed by the physician: R L SA 5 5 EE EF WE WF Quality Assurance Auditor 5 5 HF 3 3 KE KF 5 5 DF 5 5 PF -? Tone: is normal and bulk is normal -? Sensation- Intact to light touch bilaterally -? Coordination: No dysmetria on [id number], finger follow finger or [id number]. -? Gait- deferred Lab / Micro Data 04/29/24 05:50 04/29/24 05:50 Labs: Laboratory Results - last 24 hr 04/28/24 13:45: WBC 9.4, RBC 4.54, Hgb 13.9, Hct 41.4, MCV 91.2, MCH 30.6, MCHC 33.6, RDW Std Deviation 43.3, RDW Coeff of Brandon 13.0, Plt Count 275, MPV 10.3, Immature Gran % (Auto) 0.200, Neut % (Auto) 46.0 L, Lymph % (Auto) 42.8 H, [place] % (Auto) 8.8, Eos % (Auto) 1.7, Baso % (Auto) 0.5, Absolute Neuts (auto) 4.3, Absolute Lymphs (auto) 4.01, Nucleated RBC % 0, PT 12.8, INR 1.0, APTT 36.0, Sodium 137, Potassium 3.3 L, Chloride 104, Carbon Dioxide 26.0, Anion Gap 7, BUN 16, Creatinine 0.94, Estim Creat Clear Calc 62.33, Est GFR (MDRD) Af Amer 75, Est GFR (MDRD) Non-Af 62, BUN/Creatinine Ratio 17.0, Glucose 122 H, Calcium 10.0, Troponin I High Sens 89 H 04/28/24 15:50: Troponin I High Sens 85 H 04/28/24 19:28: Troponin I High Sens 89 H 04/29/24 05:50: WBC 8.4, RBC 4.38, Hgb 13.4, Hct 39.8, MCV 90.9, MCH 30.6, MCHC 33.7, RDW Std Deviation 43.3, RDW Coeff of Brandon 13.1, Plt Count 227, MPV 10.1, Immature Gran % (Auto) 0.400, Neut % (Auto) 61.8, Lymph % (Auto) 26.0, [place] % (Auto) 10.1 H, Eos % (Auto) 1.2, Baso % (Auto) 0.5, Absolute Neuts (auto) 5.2, Absolute Lymphs (auto) 2.18, Nucleated RBC % 0, Sodium 137, Potassium 3.8, Chloride 105, Carbon Dioxide 26.0, Anion Gap 6, BUN 15, Creatinine 0.94, Estim Creat Clear Calc 61.93, Est GFR (MDRD) Af Amer 75, Est GFR (MDRD) Non-Af 62, BUN/Creatinine Ratio 15.9, Glucose 123 H, Calcium 9.6, Triglycerides 172, Cholesterol 156, LDL Cholesterol 82, VLDL Cholesterol 34, HDL Cholesterol 40, TSH 1.770 Imaging Radiology Impression Brain CT 04/28/24 13:36 IMPRESSION: Chronic involutional changes of the brain. Electronically Signed: Danish Madrid MD at 14:06 EST , Chest X-Ray 04/28/24 13:55 IMPRESSION: Hyperinflation. The lungs are clear. Electronically Signed: Danish Madrid MD at 14:07 EST , Brain MRI 04/28/24 15:35 IMPRESSION: 1. No intracranial mass, hemorrhage, or acute territorial infarct. 2. No radiographically significant sinus disease. 3. No evidence of fluid or soft tissue accumulation middle ear cavities or mastoid air cells. Electronically Signed: Irving Greenfield MD at 20:37 EST , Head/Neck CTA 04/28/24 15:35 IMPRESSION: 1. Minimal calcifications in the cavernous carotid vessels without stenosis or luminal irregularity. 2. No intracranial stenosis occlusion or aneurysm. No evidence of LVO. Next line minimal calcification LEFT carotid bulb, remaining cervical carotid and vertebral circulation has normal appearance. No hemodynamically significant stenosis. Electronically Signed: Irving Greenfield MD at 23:08 EST , Active Medications Active Medications Active Medications: Current Medications Generic Name Dose Route Start Last Admin Trade Name Freq PRN Reason Stop Dose Admin Acetaminophen 650 mg 04/28/24 16:04 Acetaminophen 325 Mg Tablet PO Q6H PRN PRN Pain 1-10 Or Fever >100.7 Albuterol Sulfate 2.5 mg 04/28/24 16:04 Albuterol 2.5 Mg/3 Ml Vial.Neb. INHALATION Q2H PRN PRN SOB &/OR WHEEZING Atenolol 100 mg 04/29/24 10:00 Atenolol 100 Mg Tablet PO DAILY [facility] Protocol Atorvastatin Calcium 80 mg 04/28/24 22:00 04/28/24 20:35 Atorvastatin Calcium 80 Mg Tablet PO 80 mg QHS CORY Administration Clopidogrel Bisulfate 75 mg 04/29/24 10:00 Clopidogrel Bisulfate 75 Mg Tablet PO DAILY CORY Enoxaparin Sodium 40 mg 04/29/24 10:00 Enoxaparin 40 Mg/0.4 Ml Syringe SC DAILY CORY Hydralazine HCl 5 mg 04/28/24 16:04 Hydralazine 20 Mg/Ml Vial IV 04/29/24 16:04 Q30M PRN maintain BP parameters with HR <60 Sodium Chloride 100 mls @ 15 mls/hr 04/28/24 16:02 IV .Q6H40M PRN Saline Flush Labetalol HCl 10 - 20 mg 04/28/24 16:04 Labetalol (Prefilled) 20 Mg/4 Ml Vial IV 04/29/24 16:04 Q10M PRN PRN maintain BP parameters with HR >/=60 Levothyroxine Sodium 25 mcg 04/29/24 06:00 12/17/24 04:59 Levothyroxine 25 Mcg Tablet PO 25 mcg DAILY@0600 CORY Administration Lorazepam 0.5 mg 04/28/24 16:04 04/28/24 17:46 Lorazepam 0.5 Mg Tablet PO 0.5 mg X1 PRN Administration Anxiety with MRI Losartan Potassium 100 mg 04/28/24 22:00 04/28/24 20:35 Losartan Potassium 100 Mg Tablet PO 100 mg QHS CROY Administration Melatonin 3 mg 04/28/24 16:04 Melatonin 3 Mg Tablet PO QHS PRN PRN INSOMNIA Ondansetron HCl 4 mg 04/28/24 16:04 04/29/24 05:03 Ondansetron 4 Mg/2 Ml Vial IV 4 mg Q8H PRN PRN Administration NAUSEA/VOMITING Senna/Docusate Sodium 2 tablet 04/28/24 16:04 Senna/Docusate Sodium 1 Tablet PO BID PRN PRN Constipation Sodium Chloride 10 - 40 ml 04/28/24 16:02 04/29/24 05:03 0.9% Saline Lock 10 Ml Syringe IV 10 ml UD PRN Administration SALINE FLUSH Tolterodine Tartrate 4 mg 04/29/24 10:00 Tolterodine Tartrate 4 Mg Cap.Sa PO DAILY CORY Triamterene/Hydrochlorothiazide 1 cap 04/29/24 10:00 Triamterene 37.5mg/Hctz 25mg Capsule PO DAILY CORY
[2024-04-29] MEDS: Tolterodine Tartrate 4 MG CAP.SA PO (08:23)
[2024-04-29] MEDS: Atenolol 100 MG Tablet PO (08:24)
[2024-04-29] MEDS: Clopidogrel Bisulfate 75 MG Tablet PO (08:24)
[2024-04-29] MEDS: Triamterene 37.5MG/Hctz 25MG Capsule 1 CAP PO (08:24)
[2024-04-29] MEDS: Enoxaparin 40 MG/0.4 ML Syringe SC (08:25)
--- NOTE | 2024-04-29 08:26 | PCM.PN.HOSP ---
Reason for Visit Reason for Visit: Diagnoses Ataxia, unspecified (04/28/24) Subjective Subjective Has been having dizziness for the past 11 days. At first it lasted about 3 days and then came back a steadily worsened. Worse with turning her head to the left. Has had transient episodes of dizziness but never thing having sustained like this. Objective Data Objective Data Vital Signs: Vital Signs Temp Pulse Resp BP Pulse Ox O2 Del Method 36.4 C L 66 18 120/77 96 Room Air 04/29/24 08:17 04/29/24 08:17 04/29/24 08:17 04/29/24 08:17 04/29/24 08:17 04/29/24 08:19 Oxygen Delivery Method Room Air Weight: 105.4 kg Body Mass Index (BMI) 41.1 Lab / Micro Data 04/29/24 05:50 04/29/24 05:50 Labs: Laboratory Results - last 24 hr 04/28/24 13:45: WBC 9.4, RBC 4.54, Hgb 13.9, Hct 41.4, MCV 91.2, MCH 30.6, MCHC 33.6, RDW Std Deviation 43.3, RDW Coeff of Brandon 13.0, Plt Count 275, MPV 10.3, Immature Gran % (Auto) 0.200, Neut % (Auto) 46.0 L, Lymph % (Auto) 42.8 H, [place] % (Auto) 8.8, Eos % (Auto) 1.7, Baso % (Auto) 0.5, Absolute Neuts (auto) 4.3, Absolute Lymphs (auto) 4.01, Nucleated RBC % 0, PT 12.8, INR 1.0, APTT 36.0, Sodium 137, Potassium 3.3 L, Chloride 104, Carbon Dioxide 26.0, Anion Gap 7, BUN 16, Creatinine 0.94, Estim Creat Clear Calc 62.33, Est GFR (MDRD) Af Amer 75, Est GFR (MDRD) Non-Af 62, BUN/Creatinine Ratio 17.0, Glucose 122 H, Calcium 10.0, Troponin I High Sens 89 H 04/28/24 15:50: Troponin I High Sens 85 H 04/28/24 19:28: Troponin I High Sens 89 H 04/29/24 05:50: WBC 8.4, RBC 4.38, Hgb 13.4, Hct 39.8, MCV 90.9, MCH 30.6, MCHC 33.7, RDW Std Deviation 43.3, RDW Coeff of [place] 13.1, Plt Count 227, MPV 10.1, Immature Gran % (Auto) 0.400, Neut % (Auto) 61.8, Lymph % (Auto) 26.0, [place] % (Auto) 10.1 H, Eos % (Auto) 1.2, Baso % (Auto) 0.5, Absolute Neuts (auto) 5.2, Absolute Lymphs (auto) 2.18, Nucleated RBC % 0, Sodium 137, Potassium 3.8, Chloride 105, Carbon Dioxide 26.0, Anion Gap 6, BUN 15, Creatinine 0.94, Estim Creat Clear Calc 61.93, Est GFR (MDRD) Af Amer 75, Est GFR (MDRD) Non-Af 62, BUN/Creatinine Ratio 15.9, Glucose 123 H, Calcium 9.6, Triglycerides 172, Cholesterol 156, LDL Cholesterol 82, VLDL Cholesterol 34, HDL Cholesterol 40, TSH 1.770 Radiography Diagnostic Testing: Radiology Impression Brain CT 04/28/24 13:36 IMPRESSION: Chronic involutional changes of the brain. Electronically Signed: Danish Madrid MD at 14:06 EST , Chest X-Ray 04/28/24 13:55 IMPRESSION: Hyperinflation. The lungs are clear. Electronically Signed: Danish Madrid MD at 14:07 EST , Brain MRI 04/28/24 15:35 IMPRESSION: 1. No intracranial mass, hemorrhage, or acute territorial infarct. 2. No radiographically significant sinus disease. 3. No evidence of fluid or soft tissue accumulation middle ear cavities or mastoid air cells. Electronically Signed: Irving Greefnield MD at 20:37 EST , Head/Neck CTA 04/28/24 15:35 IMPRESSION: 1. Minimal calcifications in the cavernous carotid vessels without stenosis or luminal irregularity. 2. No intracranial stenosis occlusion or aneurysm. No evidence of LVO. Next line minimal calcification LEFT carotid bulb, remaining cervical carotid and vertebral circulation has normal appearance. No hemodynamically significant stenosis. Electronically Signed: Irving Greenfield MD at 23:08 EST , Physical Exam Const alert and no apparent distress HEENT head/scalp atraumatic and moist oral mucous membranes Neuro Neuro Narrative: Reproducible dizziness with left lateral gaze. Assessment & Plan Assessment/Plan (1) Ataxia: PLAN: Plan Vertigo and ataxia concerning for underlying CVA MRI brain showed no acute process. CTA of the head and neck was unremarkable. I suspect that this is more benign paroxysmal positional vertigo. Though the patient has been complaining of ongoing tinnitus. I did recommend that she follow-up with ENT as outpatient for evaluation for M?ni?re's disease. Elevated troponin likely benign or demand-related echo ordered. Chronic conditions: hypothyroidism-Continue Synthroid Hypertension-Continue present management given symptoms have been intermittent but present for greater than 24 hours DVT ppx: Lovenox subcu Charges/Coding Visit Charges Inpatient E&M: 17192 Subs Hosp L2
--- NOTE | 2024-04-29 13:31 | CASEMGMT ---
MAXIMILIAN JIANG Assessment Face to Face with patient for initial transition planning/care coordination assessment. MAXIMILIAN JIANG introduced self and role at [facility], pt voices understanding. Pt is A&Ox4 and is resting comfortably in the chair and is calm. Care providers, pharmacy, and demographics verified. Admitting dx: Ataxia LACE Strata: 2 PCP: Efrain Arthur Specialists: Dr. Hercules (Nephro), Olinda Gonzalez (Women's Health), Urologist out of Preferred Pharmacy: [facility] Insurance: [employer]ribe A/B, [employer] Prescription Benefit: Yes LNOK: Summer (Sean) Living Arrangements: Pt lives alone in a ranch style home with 3 steps to enter ADLs/IADLs: Ind Transportation: Self, neighbors, friends DME: CPAP with no additional oxygen, walk in shower with GB and chair, Raised TS, FWW, Cane, BP Machine HHC/SNF: Denies history Pt?s goal: Return home Plan: Home with OP Vestibular therapy. See PT tarun. Pt states that she is agreeable to this. Pt states that she has been to [facility] therapy services in [place] in the past. Report given to ADDRESSER CM who will provide pt with the Rx once able. Pt denies further questions or concerns at this time and states that she feels safe returning home alone at time of DC. Becki Hunt RN, CM
--- NOTE | 2024-04-29 14:27 | DS.PCM_ITS ---
Providers Date of Admission: 04/28/24 Primary Care Physician: Dr. Efrain Arthur MD Consultations 04/28/24 16:04 Consult: Tele-Neurology Routine Consulting Provider: [facility] Reason for Consult: Ataxia, vertigo, concern for cva or tia EMERGENT Consult: No MD Notified: Yes Date Notified: 04/28/24 Time Notified: 16:32 Method of Notification: Answering Service Nursing Unit Staff Notify [facility] of Tele-Neurology Consult: Yes Reason For Visit: ATAXIA Diagnosis Discharge Diagnosis (1) Ataxia: Status: Acute Code(s): R27.0 - Ataxia, unspecified Plan Vertigo and ataxia * MRI brain showed no acute process. CTA of the head and neck was unremarkable. * I suspect that this is more benign paroxysmal positional vertigo. Though the patient has been complaining of ongoing tinnitus. I did recommend that she follow-up with ENT as outpatient for evaluation for M?ni?re's disease. Elevated troponin * likely benign or demand-related * echo ordered. Chronic conditions: * hypothyroidism-Continue Synthroid * Hypertension-Continue present management given symptoms have been intermittent but present for greater than 24 hours DVT ppx: Lovenox subcu Medications at Discharge Home Medications atenolol 100 mg tablet 100 mg PO DAILY 04/28/24 atorvastatin 20 mg tablet 20 mg PO QHS 04/28/24 biotin 1 mg tablet 1 mg PO DAILY 04/28/24 cholecalciferol (vitamin D3) 25 mcg (1,000 unit) capsule (Vitamin D3) 25 mcg PO DAILY 04/28/24 levothyroxine 25 mcg capsule 25 mcg PO DAILY 04/28/24 olmesartan 40 mg tablet 40 mg PO QHS 04/28/24 omega-3 fatty acids 500 mg capsule 500 mg PO DAILY 04/28/24 polyethylene glycol 3350 17 gram/dose oral powder (Miralax) 8.5 g PO DAILY stool softener 04/28/24 tolterodine 4 mg capsule,extended release 24 hr 4 mg PO DAILY 04/28/24 triamterene 37.5 mg-hydrochlorothiazide 25 mg tablet 1 tab PO DAILY 04/28/24 meclizine 25 mg tablet 25 mg PO TID PRN dizziness #20 tabs 04/29/24 Weight / BMI Weight Weight: 105.4 kg Body Mass Index (BMI) 41.1 ABG / Lab / Microbiology Data 04/29/24 05:50 04/29/24 05:50 Laboratory: Laboratory Results - last 24 hr 04/28/24 15:50: Troponin I High Sens 85 H 04/28/24 19:28: Troponin I High Sens 89 H 04/29/24 05:50: WBC 8.4, RBC 4.38, Hgb 13.4, Hct 39.8, MCV 90.9, MCH 30.6, MCHC 33.7, RDW Std Deviation 43.3, RDW Coeff of [place] 13.1, Plt Count 227, MPV 10.1, Immature Gran % (Auto) 0.400, Neut % (Auto) 61.8, Lymph % (Auto) 26.0, [place] % (Auto) 10.1 H, Eos % (Auto) 1.2, Baso % (Auto) 0.5, Absolute Neuts (auto) 5.2, Absolute Lymphs (auto) 2.18, Nucleated RBC % 0, Sodium 137, Potassium 3.8, Chloride 105, Carbon Dioxide 26.0, Anion Gap 6, BUN 15, Creatinine 0.94, Estim Creat Clear Calc 61.93, Est GFR (MDRD) Af Amer 75, Est GFR (MDRD) Non-Af 62, BUN/Creatinine Ratio 15.9, Glucose 123 H, Calcium 9.6, Triglycerides 172, Cholesterol 156, LDL Cholesterol 82, VLDL Cholesterol 34, HDL Cholesterol 40, TSH 1.770 Radiography Diagnostic Testing: Radiology Impression Brain MRI 04/28/24 15:35 IMPRESSION: 1. No intracranial mass, hemorrhage, or acute territorial infarct. 2. No radiographically significant sinus disease. 3. No evidence of fluid or soft tissue accumulation middle ear cavities or mastoid air cells. Electronically Signed: Irving Greenfield MD at 20:37 EST , Head/Neck CTA 04/28/24 15:35 IMPRESSION: 1. Minimal calcifications in the cavernous carotid vessels without stenosis or luminal irregularity. 2. No intracranial stenosis occlusion or aneurysm. No evidence of LVO. Next line minimal calcification LEFT carotid bulb, remaining cervical carotid and vertebral circulation has normal appearance. No hemodynamically significant stenosis. Electronically Signed: Irving rGeenfield MD at 23:08 EST , D/C Instructions Discharge Diet: No restrictions DC O2, CPAP, BIPAP Needs Additional Home O2 Discharge instructions: No DC home with Oxygen: No Meaningful Use Info Meaningful Use Meaningful Use Diagnoses (Choose all that apply): None applicable Ischemic Stroke Statin Dosing Therapy Reference: STATIN DOSE THERAPY REFERENCE: * Patients > 75 years receive moderate or high dose statin therapy. * Patients 75 years or YOUNGER should receive HIGH intensity statin dose unless contraindicated. You will be required to document reason for non-treatment if statin daily dose does not meet guidelines. HIGH DOSE STATIN THERAPY DAILY Atorvastatin > than or = to 40 mg Rosuvastatin > than or = to 20 mg Amlodipine + Atorvastatin > than or = to 2.5/40 mg Ezetimibe + Simvastatin 10/80 mg Simvastatin 80mg Discharge Plan Admission Admit Date/Time: 04/28/24 15:19 Primary Reason for Your Visit: vertigo Attending Provider: Avi Gamboa Primary Care Provider: Efrain Arthur Consulting Providers: Imer Ramirez; Asim Villegas; Citlaly Sidhu; Anabelle Cuenca; Telma Matute; Antonio Medina; Anjana Polanco; Derrick Doss; Harry Ramos; Anshu Elise; Micki Michael; Anthony Almonte; Aleshia Gottlieb; Sarah Ramirez; Megan Bledsoe; Benedicto Regalado; Lulu Waldron; Khanh Alicea; Gale Hercules; Joselito,Eugenio; Claudia Ma Instructions Additional Instructions / Restrictions: You had vertigo. This is likely due to inner ear vertigo (AKA: BPPV, benign paroxysmal positional vertigo). Usually these self resolve. In your case, you would benefit from additional treatment with physical therapy (doing vestibular therapy, AKA Silverio maneuvers) to get the crystals out of your inner ear. You can also take meclizine (Antivert) to help with the dizziness (it makes it more tolerable, it does not treat the underlying process). Discharge Orders/Prescriptions Prescriptions: New meclizine 25 mg tablet 25 mg PO TID PRN (Reason: dizziness) Qty: 20 0RF Continued cholecalciferol (vitamin D3) [Vitamin D3] 25 mcg (1,000 unit) capsule 25 mcg PO DAILY atenolol 100 mg tablet 100 mg PO DAILY atorvastatin 20 mg tablet 20 mg PO QHS levothyroxine 25 mcg capsule 25 mcg PO DAILY olmesartan 40 mg tablet 40 mg PO QHS tolterodine 4 mg capsule,extended release 24hr 4 mg PO DAILY triamterene-hydrochlorothiazid 37.5-25 mg tablet 1 tab PO DAILY omega-3 fatty acids 500 mg capsule 500 mg PO DAILY biotin 1 mg tablet 1 mg PO DAILY polyethylene glycol 3350 [Miralax] 17 gram/dose powder 8.5 g PO DAILY Other Ambulatory Orders: Physical Therapy Evaluation (Routine) Location: None Selected Ordered By: Dr. Avi Gamboa Referrals / Follow Up: Efrain Arthur MD [Primary Care Provider] - Disposition Disposition (needs filled in before D/C Order can be placed): Home, Self Care Charges/Coding Visit Charges Inpatient E&M: 50605 Disch Hosp >30min
--- NOTE | 2024-04-29 16:01 | CASEMGMT ---
Patient has order for discharge. Script for vestibular received. [facility]IM[facility] CM in to discuss vestibular therapy with patient, script provided. Patient states she will schedule on her own. Patient denied further needs or help at discharge. Patient had no further questions.
[2024-04-29] MEDS: Acetaminophen 325 MG Tablet 650 MG PO (16:26)
== END 2024-04-29 17:41 | disposition home or self-care (01) | DRG 149 ==
LOC: ED 14:40 → PCU 15:31
PROVIDERS: Admitting Provider Internal Medicine; Emergency Provider Emergency Medicine; PCP Family Medicine
DX: H81.10 Benign paroxysmal vertigo, unspecified ear (principal); E03.9 Hypothyroidism, unspecified; I10 Essential (primary) hypertension; E87.6 Hypokalemia; R27.0 Ataxia, unspecified; R79.89 Other specified abnormal findings of blood chemistry; Z79.890 Hormone replacement therapy; Z90.49 Acquired absence of other specified parts of digestive tract
CPT/HCPCS: 36415; 70450; 70496; 70498; 70551; 71045; 80048; 80061; 84443; 84484; 85025; 85610; 85730; 93005; 93306; 94762; 97162; 97165; 99285; Q9957; Q9967; A4216; C8929; J2405

== ENCOUNTER → 2024-08-14 | Outpatient (CLI) | payer MEDICARE, OTHER, SELFPAY ==
[2024-08-14 16:20] LABS: Phosphorus 3.5 mg/dL (2.7-4.5)
[2024-08-14 16:25] LABS: Albumin, Serum 4.3 g/dL (3.4-4.8); Anion Gap 11 (5-15); BUN 19 mg/dL (4-19); BUN/Creat Ratio 17.4 RATIO (10-20); Carbon Dioxide 24.1 mmol/L (21.0-32.0); Chloride 102 mmol/L (98-108); Creatinine, Serum 1.09 mg/dL (0.70-1.20); EST Glomerular Filtration Rate 54 (>60); Glucose 90 mg/dL (70-99); Potassium 4.2 mmol/L (3.3-5.1); Sodium Level 137 mmol/L (133-145)
== END | disposition home or self-care (01) ==
LOC: LAB 13:46
PROVIDERS: PCP Family Medicine; Referring Provider Internal Medicine Nephrology; Visit Provider Internal Medicine Nephrology
DX: N18.31 Chronic kidney disease, stage 3a (principal)
CPT/HCPCS: 36415; 80069